=== PATIENT | female | born 1955 | race Caucasian/White ===

== ENCOUNTER 2019-12-13 07:50 | Outpatient (CLI) | payer MEDICARE, SELFPAY ==
--- NOTE | ~2019-12-13 | CT_ITS ---
EXAMINATION: CT lung screening EXAM DATE: 12/13/2019 08:31 INDICATION: Personal history of nicotine dependence. TECHNIQUE: Spiral low dose CT of the chest without contrast. Axial, coronal and sagittal images were reviewed. The dose-length product (DLP) for this examination was 68.94 mGy-cm. The exposure was ta ilored according to patient size (auto mA exposure control), and iterative reconstruction (ASIR) was used as additional dose reduction technique. Comparison is made to prior examination from 02/17/2018. FINDINGS: There is mild emphysema. There is linear right apical opacity consistent with scarring. T racheobronchial tree is patent. There is no mediastinal, hilar or axillary lymphadenopathy. There are no pleural or pericardial effusions. There is no pneumothorax. Heart normal in size. There is minimal coronary arterial calcification, arterial sclerosis. There are cholecystectomy clips. Liver fluid density lesions consistent with cysts, largest in the left liver lobe lateral segment at 4.3 cm. There is thoracic spondylosis without osteoblastic or osteolytic lesions identified. Mild to moderate thoracic scoliosis. IMPRESSION: Lung-RADS category 2, benign appearance or behavior (<1% chance of malignancy); recommend continued LDCT screening in 1 year. Reviewed, dictated and finalized at location A.
== END 2019-12-13 07:51 | disposition home or self-care (01) ==
LOC: ANHIMG 07:56
PROVIDERS: PCP Family Medicine; Visit Provider Physician Assistant
DX: Z87.891 Personal history of nicotine dependence (principal); Z12.2 Encounter for screening for malignant neoplasm of respiratory organs; J43.9 Emphysema, unspecified
CPT/HCPCS: G0297

== ENCOUNTER → 2020-07-03 15:18 | Outpatient (CLI) | payer MEDICARE, SELFPAY ==
--- NOTE | ~2020-07-03 | XR_ITS ---
EXAMINATION: XR foot LT min 3V DATE: 07/03/2020 15:34 INDICATION: Left foot pain TECHNIQUE: Dorsoplantar, two oblique and lateral views of the left foot were obtained. COMPARISON: None. FINDINGS: Bone alignment is normal. No fracture. Severe osteoarthritis at the first metatarsophalangeal joint w ith medial sided predominant marginal osteophytes. Mild osteoarthritis at a few of the interphalangea l joints. Soft tissues are unremarkable. IMPRESSION: 1. Severe osteoarthritis at the first metatarsophalangeal joint. No acute osseous abnormality. Reviewed, dictated and finalized at location A. IMPRESSION: 1. Severe osteoarthritis at the first metatarsophalangeal joint. No acute osseo us abnormality.
== END ==
PROVIDERS: Visit Provider Physician Assistant
DX: M79.672 Pain in left foot (principal); M19.072 Primary osteoarthritis, left ankle and foot
CPT/HCPCS: 73630

== ENCOUNTER 2020-12-03 00:16 | Day surgery (SDC) | payer MEDICARE, SELFPAY ==
[2020-11-23 09:53] VITALS: BMI 21.0
[2020-12-03 06:51] VITALS: BP 110/60; PULSE 68; RESP 16; TEMP 36.6; O2SAT 100; BMI 21.1
[2020-12-03] MEDS: LACTATED RINGERS 1,000 ML 150 ML IV CONT (07:01)
--- NOTE | 2020-12-03 07:27 | P.CONGI_ITS ---
Assessment and Plan Assessment and plan (1) Family history of colon cancer in father: Code(s): Z80.0 - Family history of malignant neoplasm of digestive organs Status: Acute Assessment and Plan: Patient has a family history of colon cancer in her father. Two sisters have had colon polyps. Plan is for patient undergo surveillance screening colonoscopies at 5 year intervals further recommendations will be given after endoscopy. GI Consult Note Consult date/time: 12/03/20 07:27 HPI: Stephani Gonzales is a 65 year old female Presents for screening colonoscopy. Patient's current weight appetite bowel movements are normal. She denies abdominal pain. She has had no bleeding. Family history is significant her father had colon cancer in 2 sisters have had colon polyps. Patient's previous endoscopies have failed to relieve reveal any polyps. She presents today for follow-up examination. Review of Systems Review of Systems: All systems reviewed & are unremarkable except as noted in HPI and below PMFSH Social History Social History Smoking packs per day: 1 Smoking cigarettes per day: 20.0 Years smoked: 35 Smoking pack-years: 35.00 Smoking status: Former smoker Tobacco type: cigarettes Alcohol intake: current Substance use: never Substance use type: does not use Living arrangements: with family Spiritual care concerns: No Meds Home Medications and Allergies Home Medications Medication Instructions Recorded Confirmed Type Multi-Vitamin 1 tab-cap PO DAILY 11/23/20 11/23/20 History calcium carbonate-vitamin D3 1 tablet PO DAILY 11/23/20 11/23/20 History [Calcium 600 + D(3)] cholecalciferol (vitamin D3) 125 mcg PO DAILY 11/23/20 11/23/20 History [Vitamin D3] denosumab [Prolia] 60 mg SUBCUT [id number] 11/23/20 11/23/20 History levothyroxine 75 mcg PO DAILY 11/23/20 11/23/20 History triamterene-hydrochlorothiazid 1 cap PO DAILY 11/23/20 11/23/20 History Allergies Allergy/AdvReac Type Severity Reaction Status Date / Time No Known Allergies Allergy Verified 12/03/20 06:50 Vital Signs Vital Signs - 24 hr 12/03/20 06:51 Temperature 97.9 F Pulse Rate 68 Respiratory Rate 16 Blood Pressure 110/60 Pulse Oximetry 100 Exam Narrative: Physical exam reveals patient be alert. Vital signs stable. HEENT exam is unremarkable. Patient is anicteric. Lungs are clear to auscultation and percussion. Heart is without murmur or extra sounds. Abdominal exam bowel sounds are present soft nontender with no he patosplenomegaly. Digital external rectal exam is normal.
--- NOTE | 2020-12-03 07:35 | WPDANESEPPF ---
Anes - Initial Pre Proc Eval Procedure: Operation Date: 12/03/20 08:00 Proposed Procedures p Screening Colonoscopy - Bruce Soto MD Date/Time: 12/03/20 07:35 Surgeon: Bruce Soto MD Pre Op Diagnosis: neoplasm screening Z12.11 Patient Data Age: 65 Gender: F Height: 1.7 m Weight: 61.1 kg Last Vital Signs Temp 97.9 F 12/03/20 06:51 Pulse 68 12/03/20 06:51 Resp 16 12/03/20 06:51 BP 110/60 12/03/20 06:51 Pulse Ox 100 12/03/20 06:51 Allergies Allergy/AdvReac Type Severity Reaction Status Date / Time No Known Allergies Allergy Verified 12/03/20 06:50 Home Medications Medication Instructions Recorded Confirmed Type Multi-Vitamin 1 tab-cap PO DAILY 11/23/20 11/23/20 History calcium carbonate-vitamin D3 1 tablet PO DAILY 11/23/20 11/23/20 History [Calcium 600 + D(3)] cholecalciferol (vitamin D3) 125 mcg PO DAILY 11/23/20 11/23/20 History [Vitamin D3] denosumab [Prolia] 60 mg SUBCUT [id number] 11/23/20 11/23/20 History levothyroxine 75 mcg PO DAILY 11/23/20 11/23/20 History triamterene-hydrochlorothiazid 1 cap PO DAILY 11/23/20 11/23/20 History Patient hx anesthesia problems: none Family hx anesthesia problems: none PMFSH Social History Social History Smoking packs per day: 1 Smoking cigarettes per day: 20.0 Years smoked: 35 Smoking pack-years: 35.00 Smoking status: Former smoker Tobacco type: cigarettes Alcohol intake: current Substance use: never Substance use type: does not use Living arrangements: with family Spiritual care concerns: No Anes - Eval Final PreProcedure Day of Procedure 12/03/20 07:35 Patient weight: normal Heart: regular rate and rhythm Lungs: clear to auscultation Airway: Mallampati scale class II Neurological: alert and oriented Last oral intake: >/= 8 hours ASA classification: II Emergent: no Anesthetic plan: proceed Anesthesia type and monitoring: general GIVS and standard monitoring Informed Consent: The patient's anesthetic plan and its attendant risks and benefits were discussed with the patient/family/POA. Questions were solicited and answers provided to the satisfaction of the patient/family/POA.
[2020-12-03 08:27] VITALS: BP 85/47; PULSE 66; RESP 10; O2SAT 100
[2020-12-03 08:37] VITALS: BP 104/62; PULSE 64; RESP 12; O2SAT 100
[2020-12-03 08:47] VITALS: BP 98/62; PULSE 56; RESP 14; O2SAT 100
== END 2020-12-03 09:05 | disposition home or self-care (01) ==
PROVIDERS: PCP Family Medicine; Visit Provider Internal Medicine Gastroenterology
PROC: 0DJD8ZZ Inspection of Lower Intestinal Tract, Via Natural or Artificial Opening Endoscopic (ICD-10-PCS; CPT 45378; principal; 2020-12-03 08:00)
DX: Z12.11 Encounter for screening for malignant neoplasm of colon (principal); K63.5 Polyp of colon; K57.30 Diverticulosis of large intestine without perforation or abscess without bleeding; K64.8 Other hemorrhoids; Z80.0 Family history of malignant neoplasm of digestive organs; Z83.71 Family history of colonic polyps; Z87.891 Personal history of nicotine dependence
CPT/HCPCS: 45385; 88305; J2704; J7120

== ENCOUNTER 2021-12-10 10:16 | Outpatient (CLI) | payer MEDICARE, SELFPAY ==
--- NOTE | ~2021-12-10 | CT_ITS ---
EXAMINATION: CT lung screening DATE: 12/10/2021 10:39 INDICATION: History of nicotine dependence TECHNIQUE: Computed tomography (CT) of the chest was performed without intravenous contrast. The dose -length product was 65.66 mGy-cm. Automated exposure control and iterative reconstruction technique w ere employed. COMPARISON: CT dated 12/13/2019 and 02/17/2018 FINDINGS: Heart size normal. There is atherosclerosis. No significant pleural or pericardial effusion . There are liver cysts, largest in the left hepatic lobe. There are cholecystectomy clips. No thorac ic lymphadenopathy. There is emphysema. No endobronchial lesions. No focal airspace consolidation. No pneumothorax. There is a 2 mm fissural nodule on the left. There are a few small 1-2 mm nodules in t he lung apices, likely benign. Calcified granuloma adjacent to the left fissure superiorly. There is scoliosis. No acute osseous abnormality. Mild thoracic spondylosis. IMPRESSION: 1. Lung-RADS category 2: Benign appearance or behavior. Continue annual screening with noncontrast lo w-dose chest CT in 12 months. Reviewed, dictated and finalized at location B. IMPRESSION: 1. Lung-RADS category 2: Benign appearance or behavior. Continue annual screeni ng with noncontrast low-dose chest CT in 12 months.
== END 2021-12-10 10:17 | disposition home or self-care (01) ==
PROVIDERS: PCP Family Medicine; Visit Provider Physician Assistant
DX: Z12.2 Encounter for screening for malignant neoplasm of respiratory organs (principal); Z87.891 Personal history of nicotine dependence
CPT/HCPCS: 71271

== ENCOUNTER 2022-04-22 12:41 | Outpatient (CLI) | payer MEDICARE, SELFPAY ==
--- NOTE | ~2022-04-22 | MMUS_ITS ---
EXAMINATION: MM diagnostic patricia RT w debbie, US breast RT limited HISTORY: Pain and palpable lump, upper outer right breast TECHNIQUE: Full field and spot right MLO, MLO and CC 3-D tomosynthesis images were performed and synt hetic 2-D images were generated. CAD analysis was submitted and interpreted. High resolution upper ou ter quadrant right breast ultrasound was performed. COMPARISON: 11/23/2021 [facility] bilateral screening mammogram BREAST PARENCHYMAL COMPOSITION: There are scattered areas of fibroglandular density. FINDINGS: MAMMOGRAPHIC FINDINGS: No suspicious mass, architectural distortion, malignant calcification, skin thickening or retraction of the right breast is detected. ULTRASOUND: No suspicious mass or shadowing, cyst or other significant sonographic abnormalities detected in the upper outer quadrant of the right breast. IMPRESSION: 1. No mammographic evidence of malignancy 2. Routine annual mammographic screening is recommended. BI-RADS Category 1: Negative Reviewed, dictated and finalized at location A. UP SALES ADVISOR IMPRESSION: 1. No mammographic evidence of malignancy 2. Routine annual mammographic screening is recommended. BI-RADS Category 1: Negative
== END 2022-04-22 12:42 | disposition home or self-care (01) ==
LOC: ANHIMG 12:44
PROVIDERS: PCP Family Medicine; Visit Provider Family Medicine
DX: N64.4 Mastodynia (principal)
CPT/HCPCS: 76642; 77061; 77065; G0279

== ENCOUNTER 2023-08-10 14:31 | Outpatient (CLI) | payer MEDICARE, SELFPAY ==
--- NOTE | ~2023-08-10 | MM_ITS ---
EXAMINATION: MM screening patricia BI w debbie HISTORY: Screening TECHNIQUE: Craniocaudal and mediolateral oblique 3-D tomosynthesis images were obtained and synthetic 2-D images were generated. CAD analysis was submitted and interpreted. COMPARISON: Comparison to multiple prior studies sequentially, with oldest reviewed study dated 11/23. BREAST PARENCHYMAL COMPOSITION: Not dense: There are scattered areas of fibroglandular density. FINDINGS: There is no evidence of suspicious mass, calcification, or architectural distortion to sugg est malignancy in either breast. There has been no suspicious interval change. IMPRESSION: 1. No mammographic evidence of malignancy. 2. Recommend routine screening mammography in one year. BI-RADS Category 1: Negative Reviewed, dictated and finalized at location B.
== END 2023-08-10 14:32 | disposition home or self-care (01) ==
PROVIDERS: PCP Family Medicine; Visit Provider Family Medicine
DX: Z12.31 Encounter for screening mammogram for malignant neoplasm of breast (principal)
CPT/HCPCS: 77063; 77067

== ENCOUNTER 2023-12-12 13:43 | Outpatient (CLI) | payer MEDICARE, SELFPAY ==
--- NOTE | ~2023-12-12 | CT_ITS ---
CT Scan of the Chest without Contrast: Clinical Indication: Lung cancer screening, nicotine dependence Technique: Contiguous sections were acquired throughout the chest without intravenous contrast. Dose reduction technique was used on this scan by utilizing automated exposure control and iterative recon struction technique. The dose-length product (DLP) was 67.82 mGy-cm. COMPARISON: 12/10/2021 Findings: There is no evidence of any significant mediastinal, hilar or axillary lymphadenopathy. The mediastin al soft tissues appear normal. There is no evidence of pleural or pericardial effusion. Stable right apical scarring noted. No pulmonary nodule evident. Mild emphysema. Images through the upper abdomen reveal stable hepatic cysts. Impression: Lung RADS 1: Negative. 12 month follow-up screening CT advised. Reviewed, dictated and finalized at location . Impression: Lung RADS 1: Negative. 12 month follow-up screening CT advised.
== END 2023-12-12 13:44 | disposition home or self-care (01) ==
PROVIDERS: PCP Family Medicine; Visit Provider Family Medicine
DX: Z12.2 Encounter for screening for malignant neoplasm of respiratory organs (principal); Z87.891 Personal history of nicotine dependence
CPT/HCPCS: 71271

== ENCOUNTER 2024-09-24 07:42 | Outpatient (CLI) | payer MEDICARE, SELFPAY ==
--- NOTE | ~2024-09-24 | MM_ITS ---
EXAMINATION: MM screening patricia BI w debbie HISTORY: Screening TECHNIQUE: Craniocaudal and mediolateral oblique 3-D tomosynthesis images were obtained and synthetic 2-D images were generated. CAD analysis was submitted and interpreted. COMPARISON: Comparison to multiple prior studies sequentially, with oldest reviewed study dated 11/23. BREAST PARENCHYMAL COMPOSITION: Not dense: There are scattered areas of fibroglandular density. FINDINGS: Stable asymmetry subareolar location in the left breast. There is no evidence of suspicious mass, calcification, or architectural distortion to suggest malignancy in either breast. There has b een no suspicious interval change. IMPRESSION: 1. No mammographic evidence of malignancy. 2. Recommend routine screening mammography in one year. BI-RADS Category 1: Negative Reviewed, dictated and finalized at location []
--- OUTSIDE RECORDS SUMMARY | 2024-09-24 07:47 | XMS_ITS | Clinical Summary ---
Author Organization [facility] Address [address] [place] [id number] Care Team Providers Care Economic Research Analyst Name Role Phone Edgar Combs MD Primary Care Provider [phone] Allergies No known active allergies Medications calcium carbonate-vitam in D3 1500 mg (600 mg elemental) -200 units per tablet 2 times daily. Activ e levothyroxine (SYNTHROID, LEVOTHROID) 75 mcg tablet daily. Active multivitamin tabletIndicatio ns:Vitamin Deficiency Prevention Active cholecalciferol (VITAMIN D-3) 1,000 unit daily. 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 Meniere's disease 07/22 Hearing loss 07/15/2015 Ear ringing 07/15/2015 Skin benign neoplasm 06/07/2012 Keratosis, senilis 10/06/2011 Actinic keratosis 10/06/2011 Surgical History Surgery Date Site/Laterality Comments GALLBLADDER SURGERY Gallbladder Surgery - (Added by TW Conv) Medical History Medical History Date Comments Malignant neoplasm of skin Skin cancer - (Added by TW Conv) Personal history of other ma lignant neoplasm of skin History of basal cell carcin la nena - (Added by TW Conv) Contraindication to oral bis phosphonate therapy 04/06/2023 Lack of efficacy Family History Medical History Relation Name Comments Hypertension Father Family history of hypertension - (Added by TW Conv) Thyroid disease Father Family histo ry of thyroid disease - (Added by TW Conv) Migraines Mother Family history of migraine headaches - (Added by TW Conv) Osteoporosis Other 1 Family history of osteoporosis - Relation: Grandmother (Added by TW Conv) Osteoporosis Other 2 Family history of osteoporosis - (Added by TW Conv) Osteoporosis Paternal Grandmother Broken bones Sister 1 Afsaneh Migraines Sister 1 Afsaneh Family history of migraine headaches - (Added by TW Conv) Osteoporosis Sister 1 Afsaneh Osteoporosis Sister 2 Madina Relation Name Status Comments Father Mother Other 1 Alive Other 2 Paternal Grandmother Sister 1 Afsaneh Alive Sister 2 Madina Alive Social History Tobacco Use Types Packs/Day Years Used Date Smoking Tobacco: Former Smokeless Tobacco: Never Tobacco Cessation:Counseling Given: Not Answered Comments Unknown Sex and Gender Information Value Date Recorded Sex Assigned at Not on file Legal Sex Female 8:54 PM [employer] Gender Identity Female 04/07/2024 1:56 PM [employer] Sexual Orientation Straight 04/07/2024 1: 56 PM [employer] Obstetrics History Last Filed Vital Signs Vital Sign Reading Time Taken Comments Blood Pressure 128/74 05/06/2024 11:00 AM [employer] Pulse 67 05/06/2024 11:00 AM [employer] Temperature 36.3 C (97.4 F) 05/06/2024 11:00 AM [employer] Respiratory Rate 18 05/06/2024 11:00 AM [employer] Oxygen Saturation 100% 05/06/2024 11:00 AM [employer] Inhaled Oxygen Concentration - - Weight 60.6 kg (133 lb 9.6 oz) 05/06/2024 9:50 A M [employer] Height 169.5 cm (5' 6.75) 04/08/2024 2:49 PM CS T Body Mass Index 21.08 04/08/2024 2:49 PM [employer] Plan of Treatment Health Maintenance Due Date Last Done Comments Colon Cancer Screening-Colonoscopy 1955 Depression Screening 1955 Fall Risk Assessment 1955 Hepatitis C Screening 1955 Hepatitis B Screening 1972 Zoster Vaccine (1 of 2) 2004 Well Visit 65+ 09/16/2019 Breast Cancer Screening-Mammogram 11/23/2022 11/23/2021, 11/23/2021, 11/19/2020, Additional history exists Covid-19 Vaccine (2023-2 5 season) 2023 02/04/2022, 01/29/2021, 06/01/2020, Additional history exists Influenza Vaccine (#1) 2024 , 12/07/2020, 12/02/2019, Additional history exists Osteoporosis Screening-Bone Density Scan 04/08/2026 04/08/2024, 04/06/2023, 02/07/2022, Additional history exists DTaP/Tdap/Td Vaccine (2 - Td or Tdap) 12/29/2030 12/29/2020 Pneumococcal vaccine 65+ Completed 02/12/2022, 11/12 Procedures Procedure Name Priority Date/Time Associated Diagnosis Comments DEXA TBS AXIAL SKELETON BONE DENSITY 1 OR MORE SITES Schedule Routine, Read Routine (OP Routine) 04/08/2024 2:51 PM [employer] Osteoporosis, postmenopausal from Last 3 Months or Most Recently Relevant to Health Maintenance Results * Dexa TBS Axial Skeleton Bone Density 1 or more sites (04/08/2024 2:51 PM [employer]) Anatomical Region Laterality Modality Wrist, Body N/A Radiographic Moni ging Narrative 04/08/2024 3:52 PM [employer] Patient Name: Stephani Gonzales Date of : 1955 Date of scan: 04/08/2024 Bone mineral density was performed on a H[employer] Discovery Densitometer. Based on machine cross-calibration and precision studies the least significant changes of this densitometer is 0.024 g/cm2 at the spine, 0.020 g/cm2 at the total proximal femur, and 0.014g/cm2 at the forearm. HISTORY: This is a 68 y.o. postmenopausal female with a history of osteoporosis and thyroid disease. She reports that she has quit smoking. She has never used smokeless tobacco. Currently on treatment with calcium, vitamin D, and zoledronic acid (Reclast), previously treated with teriparatide (Forteo) and denosumab (Prolia), and current complaint of back pain. INDICATIONS: Menopause status, treatment monitoring, and history of osteoporosis. FINDINGS: BONE MINERAL DENSITY OF THE LUMBAR SPINE Bone Mineral Density (BMD) of the lumbar spine was measured from L1-L4 and the average density was calculated to be 0.801 gm/cm2. This corresponds to a T-score (standard deviations from the mean of young adults) of -2.2. When compared to the previous study of 04/06/2023 there has been a -0.062 gm/cm (-7.2%) decrease in bone density that is considered significant. BONE MINERAL DENSITY OF THE PROXIMAL FEMUR Bone Mineral Density (BMD) of the left hip total was found to be 0.858 gm/cm2. This corresponds to a T-score standard deviations from the mean of young adults of -0.7. Femoral neck is 0.744 gm/cm2 with a T-score (standard deviations from the mean of young adults) of -0.9. When compared to the previous study of 04/06/2023 there has been no significant changes in bone density. SUMMARY: Bone mineral density shows evidence of low bone mass at the lumbar spine and moderately increased fracture risk (Osteopenia). There has been a significant decrease in bone density since previous measurement. The lumbar spine Trabecular Bone Score is 1.390 which suggests normal bone microarchitecture, compared to the general population. Final decisions regarding diagnostic or therapeutic recommendations should include BMD, TBS, additional clinical risk factors as well the clinical context of the patient. Please see attached TBS results for further details. ADDITIONAL COMMENTS: Postmenopausal Women and Men Over 50: Diagnostic criteria: Osteoporosis: BMD at or below -2.5 T-score; Osteopenia (low bone mass): BMD between -1.0 and -2.5 T-score. If the patient has a history of a fragility fracture, a fracture that occurred with trauma equivalent to a fall from a standing position or less, then the diagnosis is osteoporosis regardless of bone density. The history and data sections of the bone mineral density scan were prepared by Jessie Ngo) ZAN who is accredited by the International Society of Clinical Densitometry. The overall patient assessment and scan interpretation were performed by Enio Morrow M.D. who is certified by the International Society of Clinical Densitometry. [id number] Jasmine Nash [facility] IM DXA PROCEDURES Final Result from Last 3 Months or Most Recently Relevant to Health [place] [address] [place] [place] [address] [place] [address] [employer] Care Teams Economic Research Analyst Relationship Specialty Start Date End Date Edgar Combs MD [address] [place] [address] PCP - General 07/01/16
--- OUTSIDE RECORDS SUMMARY | 2024-09-24 07:47 | XMS_ITS | Clinical Summary ---
Author Organization [facility] Address [address] [place] [id number] Care Team Providers Care Finance Insurance Manager Name Role Phone Edgar Combs MD Primary Care Provider Family History Medical History Relation Comments Breast Cancer Paternal Aunt Relation Status Comments Paternal Aunt Social History Tobacco Use Types Packs/Day Years Used Date Smoking Tobacco: Never Assessed Comments Unknown Sex and Gender Information Value Date Recorded Sex Assigned at Not on file Legal Sex Female 4:53 PM CDT Gender Identity Not on file Sexual Orientation Not on file Plan of Treatment Health Maintenance Due Date Last Done Comments Colorectal Cancer Screening Colonoscopy (10 Years) 1954 Hepatitis C 1972 DTaP, Tdap and Td Vaccines (1 - Tdap) 1973 Pneumococcal Vaccine: 50+ Years (1 of 1 - PCV) 2004 Zoster Vaccines (1 of 2) 2004 Annual Medicare Wellness Visit 09/16/2019 Dexa Scan (General) 09/16/2019 COVID-19 Vaccine ( - 2023- season) 2023 Mammogram Screening 11/24/2023 11/23/2021, 11/19/2020, 11/05/2019, Additional history exists RSV Immunization or 60+ Years (1 - 1-dose 75+ series) 2029 Meningococcal B Vaccine Aged Out No l onger eligible based on patient's age to complete this topic Meningococcal Vaccine Aged Out No anirudh lyn eligible based on patient's age to complete this topic RSV Immunizations Under 20 Months Aged Out No longer eligible based on patient's age to complete this topic Procedures Procedure Name Priority Date/Time Associated Diagnosis Comments MG SCREENING W JUVE CHERYL DIGI Routine 11/23/2021 3:22 PM CDT Encounter for screening mammogram for malignant neoplasm of breast from Last 3 Months or Most Recently Relevant to Health Maintenance Results * MG SCREENING W JUVE CHERYL DIGI (11/23/2021 3:22 PM CDT) Anatomical Region Laterality Modality Breast Bilateral Mammography 11/23/2021 4:44 PM CDT Impressions 11/23/2021 4:45 PM CDT =====IMPRESSION:===== No mammographic findings suggestive of malignancy ASSESSMENT: ACR BI-RADS 2 - BENIGN FINDING(S) Recommendation: 1: Routine Screening Bilateral COMMENTS: Ordered By: RUBÉN LOPEZ Interpreted By: Ricky Chambers MD, 11/23/2021 4:44 PM Narrative 11/23/2021 4:45 PM CDT EXAMINATION: Digital bilateral screening mammogram with 3-D tomosynthesis EXAM DATE/TIME: 11/23/2021 2:26 PM REASON FOR EXAM: SCREENING COMPARISON: November 2020, October 2019, September 2018, June 2017 TECHNIQUE: Digital screening mammography of both breasts was performed in addition to 3-D Tomosynthesis technique. This study was read with the assistance of a computer-aided detection system. TISSUE DENSITY: There are scattered areas of fibroglandular density. FINDINGS: No suspicious masses, malignant appearing calcifications, skin thickening or other abnormalities are present. No significant change from the prior exam. us Rubén Lopez MD MAMMO Final Result from Last 3 Months or Most Recently Relevant to Health [place] [address] [facility] Care Teams Finance Insurance Manager Relationship Specialty Start Date End Date Edgar Combs MD [address] [place] [id number] PCP - General 10/05/16
--- OUTSIDE RECORDS SUMMARY | 2024-09-24 07:47 | XMS_ITS | Referral Summary ---
Author Organization [facility] Address [address] [place] [id number] Care Team Providers Care Tile Inspector Name Role Phone Edgar Combs MD Primary Care Provider [phone] Allergies No known active allergies Medications calcium [...] 06/07/2012 Keratosis, senilis 10/06/2011 Actinic keratosis 10/06/2011 Social History Tobacco Use Types Packs/Day Years Used Date Smoking Tobacco: Former Smokeless Tobacco: Never Tobacco Cessation:Counseling Given: Not Answered Comments Unknown Sex and Gender Information Value Date Recorded Sex Assigned at Not on file Legal Sex Female 8:54 PM SPEECH COACH Gender Identity Female 04/07/2024 1:56 PM SPEECH COACH Sexual Orientation Straight 04/07/2024 1: 56 PM SPEECH COACH Last Filed Vital Signs Vital Sign Reading Time Taken Comments Blood Pressure 128/74 05/06/2024 11:00 AM SPEECH COACH Pulse 67 05/06/2024 11:00 AM SPEECH COACH Temperature 36.3 C (97.4 F) 05/06/2024 11:00 AM SPEECH COACH Respiratory Rate 18 05/06/2024 11:00 AM SPEECH COACH Oxygen Saturation 100% 05/06/2024 11:00 AM SPEECH COACH Inhaled Oxygen Concentration - - Weight 60.6 kg (133 lb 9.6 oz) 05/06/2024 9:50 A M SPEECH COACH Height 169.5 cm (5' 6.75) 04/08/2024 2:49 PM CS T Body Mass Index 21.08 04/08/2024 2:49 PM SPEECH COACH Plan of Treatment Not on file Procedures Procedure Name Priority Date/Time Associated Diagnosis Comments DEXA TBS AXIAL SKELETON BONE DENSITY 1 OR MORE SITES Schedule Routine, Read Routine (OP Routine) 04/08/2024 2:51 PM SPEECH COACH Osteoporosis, postmenopausal from Last 3 Months or Most Recently Relevant to Health Maintenance Results * Dexa TBS Axial Skeleton Bone Density 1 or more sites (04/08/2024 2:51 PM SPEECH COACH) Anatomical Region Laterality Modality Wrist, Body N/A Radiographic Moni ging Narrative 04/08/2024 3:52 PM SPEECH COACH Patient Name: Stephani Gonzales Date of : [...] by the International Society of Clinical Densitometry. [id number] Jasmine Nash [facility] IM DXA PROCEDURES Final Result from Last 3 Months or Most Recently Relevant to Health [place] [address] [place] [address] [employer] Care Teams Tile Inspector Relationship Specialty Start Date End Date Edgar Combs MD [address] [place] [address] PCP - General 07/01/16
== END 2024-09-24 07:43 | disposition home or self-care (01) ==
LOC: ANHIMG 07:45
PROVIDERS: PCP Family Medicine; Visit Provider Family Medicine
DX: Z12.31 Encounter for screening mammogram for malignant neoplasm of breast (principal)
CPT/HCPCS: 77063; 77067

== ENCOUNTER 2025-02-21 15:04 | Outpatient (CLI) | payer MEDICARE, SELFPAY ==
--- NOTE | ~2025-02-21 | CT_ITS ---
EXAMINATION: CT lung screening DATE: 02/21/2025 15:23 INDICATION: Z87.891 - Personal history of nicotine dependence TECHNIQUE: Computed tomography (CT) of the chest was performed without intravenous contrast. Additional 3D reconstructions utilizing coronal maximum intensity projection (MIP) were performed. Automated exposure control and iterative reconstruction technique were employed. The dose-length product was 62 .28 mGy-cm. COMPARISON: None FINDINGS: Mild emphysema with mild right apical and minimal left apical pleural- parenchymal scarring. Calcified left lower lobe nodules along with calcified left hilar and mediastinal lymph nodes consistent with old granulomatous disease. Mild discoid atelectasis at the bilateral lung bases. No suspicious noncalcified pulmonary nodules, pneumonia, pulmonary edema or pleural effusion. Heart size is normal. Small amount of atherosclerotic coronary artery calcific location. No pericardial effusion. Thoracic aorta is normal in caliber. No pathologically enlarged thoracic lymphadenopathy. Several low-attenuation h epatic cysts, the 2 largest measuring up to 3.5 cm. Mild S-shaped curvature of the thoracic spine with mild spondylosis. IMPRESSION: 1. . Lung-RADS category 1: Negative. Continue annual screening with noncontrast low-dose chest CT in 12 months. Reviewed, dictated and finalized at location A. ETING REPORTING ANALYST
== END 2025-02-21 15:05 | disposition home or self-care (01) ==
PROVIDERS: PCP Family Medicine; Visit Provider Family Medicine
DX: Z12.2 Encounter for screening for malignant neoplasm of respiratory organs (principal); Z87.891 Personal history of nicotine dependence
CPT/HCPCS: 71271